=== PATIENT | female | born 1995 | race African-American/Black ===

== ENCOUNTER 2017-10-01 20:33 | Emergency (ER) | payer OTHER ==
[~2017-10-01] VITALS: Ht 165.1 cm; Wt 72.6 kg
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
--- NOTE | 2017-10-01 20:45 | NUR ---
URINE COLLECTED BY STRAIGHT CATH PER TRICIA GRIER, ALKA AVILES AND MERVAT LOCOMOTIVE OPERATOR IN ROOM
--- NOTE | 2017-10-01 20:49 | NUR ---
LAB AT BEDSIDE TO DRAW
[2017-10-01 20:56] LABS: BASOPHILS % (AUTO) 0.4 % (0.0-2.0); EOSINOPHILS # (AUTO) 0.1 /CMM (0.0-0.7); HEMATOCRIT 40 % (33-45); HEMOGLOBIN 12.9 g/dL (11.5-14.8); LYMPHOCYTES # (AUTO) 3.8 /CMM (0.8-4.8); LYMPHOCYTES % (AUTO) 50.9 % (20.0-44.0); MEAN CORPUSCULAR HEMOGLOBIN 28 PG (26.0-33.0); MEAN CORPUSCULAR HGB CONC 32 g/dl (31.0-36.0); MEAN CORPUSCULAR VOLUME 86 fL (82-100); MONOCYTES # (AUTO) 0.4 /CMM (0.1-1.30); MONOCYTES % (AUTO) 5.6 % (2.0-12.0); NEUTROPHILS % (AUTO) 41.1 % (43.0-81.0); PLATELET COUNT (AUTO) 228 /CMM (150-450); RDW COEFFICIENT OF VARIATION 12.8 (11.5-15.0); RED BLOOD CELL COUNT(AUTO) 4.65 MIL/uL (4.0-5.2); WHITE BLOOD COUNT (AUTO) 7.3 K/uL (4.3-11.0)
[2017-10-01 20:58] LABS: APPEARANCE,URINE Clear (CLEAR); BILIRUBIN,URINE Negative (NEGATIVE); BLOOD, URINE Negative Ery/uL (NEGATIVE); COLOR,URINE Light yellow (YELLOW); KETONES,URINE Negative (NEGATIVE); LEUKOCYTE ESTERASE ,URINE Negative (NEGATIVE); NITRITE, URINE Negative (NEGATIVE); PH,URINE 5.5 (5.0-8.0); PROTEIN,URINE Negative (NEGATIVE); UGLUCOSE Negative (NEGATIVE); UROBILINOGEN,URINE 0.2 EU/dL (0.2)
[2017-10-01] MEDS ORDERED: HALOPERIDOL LACTATE INJ 5 MG/ML VIAL ONE (20:58)
[2017-10-01] MEDS ORDERED: HALOPERIDOL LACTATE INJ 5 MG/ML VIAL IM ONE (21:00)
[2017-10-01] MEDS ORDERED: LORAZEPAM 1 MG TABLET PO ONE (21:00)
[2017-10-01] MEDS ORDERED: diphenhydrAMINE HCL 50 MG/ML VIAL IM ONE (21:00)
[2017-10-01 21:07] LABS: POTASSIUM 3.5 mmol/L (3.5-5.1); SODIUM SERUM 141 mmol/L (136-145)
[2017-10-01 21:08] LABS: CALCIUM, SERUM 9.4 mg/dL (8.5-10.1); CARBON DIOXIDE 25 mmol/L (21-32); CHLORIDE 104 mmol/L (98-107); CREATININE 0.7 mg/dL (0.6-1.3); GLUCOSE 115 mg/dL (74-106); UREA NITROGEN, BLOOD 7 mg/dL (7-18)
[2017-10-01 21:13] LABS: ALANINE AMINOTRANSFERASE 18 U/L (12-78); ALBUMIN 4.1 g/dL (3.4-5.0); ALCOHOL, BLOOD 219 mg/dL (0-0); ALKALINE PHOSPHATASE 58 U/L (46-116); ASPARTATE AMINOTRANSFERASE 19 U/L (15-37); BILIRUBIN,TOTAL 0.2 mg/dL (0.2-1.0); TOTAL PROTEIN, SERUM 8.4 g/dL (6.4-8.2)
[2017-10-01 21:14] LABS: ACETAMINOPHEN < 10 ug/ml (10-30); SALICYLATE 0.9 mg/dL (2.8-20.0)
[2017-10-01] MEDS ORDERED: LORAZEPAM INJ 2 MG/ML VIAL ONE (21:15)
[2017-10-01] MEDS ORDERED: LORAZEPAM INJ 2 MG/ML VIAL IM ONE (21:30)
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
--- NOTE | 2017-10-02 01:30 | NUR ---
PT WOKE UP AND WAS WALKING DOWN HALLWAY, PT BROUGHT BACK TO BED AND GIVEN SOME WATER, PT IS BACK ALSEEP ON MONITOR, WILL CONTINUE TO MONITOR.
--- NOTE | 2017-10-02 01:31 | NUR ---
PT DENIES SI OR HI WILL CONTINUE TO MONITOR.
--- NOTE | 2017-10-02 03:37 | NUR ---
PT WALKING WITH A STEADY GAIT TO THE BATHROOM, PT BROUGHT BACK TO BED AND PUT BACK ON MONITOR, MD MADE AWARE WILL CONTINUE TO MONITOR.
--- NOTE | 2017-10-02 05:10 | NUR ---
PT SLEEPING IN BED IN NAD, PT ON MONITOR, WILL CONTINUE TO MONITOR.
--- NOTE | 2017-10-02 05:31 | NUR ---
Patient discharged to home in stable condition. Written and verbal after care instructions given. Patient verbalizes understanding of instruction. Pt walked out fo the er with a steady gait, pt told to not drive, pt states she will call someone to pick her up and will not drive.
[2017-10-02 05:33] VITALS: BP 100/63
== END 2017-10-02 05:34 | disposition home or self-care (01) ==
LOC: ER 20:35 → EDBD 20:35 → ER 10-02 05:34
DX: F10.129 Alcohol abuse with intoxication, unspecified (principal); F41.9 Anxiety disorder, unspecified
CPT/HCPCS: 36415; 80048; 80076; 80305; 80329; 81001; 84702; 85025; 96372 ×2; 99284; A4606; G0480 ×2; J1630; J2060; 81000-TC

== ENCOUNTER 2022-05-25 00:07 | Emergency (ER) | payer OTHER ==
[~2022-05-25] VITALS: Ht 162.6 cm; Wt 70.8 kg
[2022-05-25] MEDS ORDERED: IV NS 0.9% 1,000 ML BAG IV ONE (00:30)
[2022-05-25] MEDS ORDERED: HALOPERIDOL LACTATE INJ 5 MG/ML VIAL IM ONE ×2 (00:30→01:00)
--- NOTE | 2022-05-25 00:30 | NUR ---
PT CAME WITH IV CANNULA G20 ON LEFT AC.
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
[2022-05-25] MEDS ORDERED: HALOPERIDOL LACTATE INJ 5 MG/ML VIAL ONE ×2 (00:31→00:36)
--- NOTE | 2022-05-25 00:35 | NUR ---
GYROSCOPE TECHNICIAN AT BEDSIDE.
--- NOTE | 2022-05-25 00:55 | NUR ---
COVID SWAB DONE AND SENT TO LAB
[2022-05-25 01:00] LABS: BASOPHILS % (AUTO) 0.2 % (0.0-2.0); EOSINOPHILS % (AUTO) 0.3 % (0.0-6.0); HEMATOCRIT 38 % (33-45); HEMOGLOBIN 12.1 g/dL (11.5-14.8); LYMPHOCYTES # (AUTO) 3.2 K/uL (0.8-4.8); LYMPHOCYTES % (AUTO) 57.5 % (20.0-44.0); MEAN CORPUSCULAR HGB CONC 32 g/dl (31.0-36.0); MEAN CORPUSCULAR VOLUME 88 fL (82-100); MONOCYTES # (AUTO) 0.4 K/uL (0.1-1.30); MONOCYTES % (AUTO) 7.6 % (2.0-12.0); NEUTROPHILS # (AUTO) 1.9 K/uL (1.8-8.9); NEUTROPHILS % (AUTO) 34.4 % (43.0-81.0); PLATELET COUNT (AUTO) 206 K/uL (150-450); RED BLOOD CELL COUNT(AUTO) 4.28 MIL/uL (4.0-5.2); WHITE BLOOD COUNT (AUTO) 5.5 K/uL (4.3-11.0)
[2022-05-25 01:15] LABS: CALCIUM, SERUM 8.5 mg/dL (8.5-10.1); CREATININE 0.8 mg/dL (0.6-1.3); POTASSIUM 3.7 mmol/L (3.5-5.1)
--- NOTE | 2022-05-25 01:18 | NUR ---
URINE COLLECTED AND SENT TO LAB
[2022-05-25 01:21] LABS: ALBUMIN 3.8 g/dL (3.4-5.0); BILIRUBIN,TOTAL 0.2 mg/dL (0.2-1.0); TOTAL PROTEIN, SERUM 8.3 g/dL (6.4-8.2)
[2022-05-25 01:28] LABS: THYROID STIMULATING HORMONE 0.933 uIU/mL (0.358-3.74)
[2022-05-25 01:33] LABS: BILIRUBIN,URINE NEGATIVE (NEGATIVE); LEUKOCYTE ESTERASE ,URINE NEGATIVE (NEGATIVE); NITRITE, URINE NEGATIVE (NEGATIVE); PROTEIN,URINE NEGATIVE (NEGATIVE); UGLUCOSE NEGATIVE (NEGATIVE); UROBILINOGEN,URINE 0.2 EU/dL (0.2)
[2022-05-25 01:35] LABS: COLOR,URINE LIGHT YELLOW (YELLOW)
--- NOTE | 2022-05-25 02:04 | NUR ---
PT RETURNED TO ER BED [address]
--- NOTE | 2022-05-25 03:27 | NUR ---
FOLLOWED UP WITH [facility] REGARDING IMAGING. WILL BE READY IN 40-50 MIN PER ES
--- NOTE | 2022-05-25 03:36 | NUR ---
PT BREATHING EVEN AND UNLABORED SLEEPING COMOFRTABLY. PT ON MONITOR AND PULSE OX AND V/S WNL.
--- NOTE | 2022-05-25 06:42 | NUR ---
Patient discharged to home in stable condition. Written and verbal after care instructions given. Patient verbalizes understanding of instruction.IV removed. Catheter intact and site benign. Pressure and 4x4 applied to site. No bleeding noted. Pt ambulatory with a steady gait
[2022-05-25 06:43] VITALS: BP 107/65
== END 2022-05-25 06:43 | disposition home or self-care (01) ==
LOC: ER 00:14
DX: F10.121 Alcohol abuse with intoxication delirium (principal); Y90.7 Blood alcohol level of 200-239 mg/100 ml; Z20.822 Contact with and (suspected) exposure to COVID-19
CPT/HCPCS: 99285; 96372 ×2; 96360; 71045; 72125; 70450; 85025; 80048; 80076; 84703; 81003; 36415; 84443; 85730; 87426; 80143; 80320; 80307; J1630 ×2; J7030; C9803; G0480